=== PATIENT | male | born 1995 | race Two or more races ===

== ENCOUNTER 2020-02-03 00:52 | Emergency (ER) | payer SELFPAY ==
[~2020-02-03] VITALS: Ht 165.1 cm; Wt 63.5 kg
[2020-02-03] MEDS ORDERED: OLANZAPINE 10 MG VIAL IM ONE ×2 (01:00→01:03)
[2020-02-03] MEDS ORDERED: LORAZEPAM INJ 2 MG/ML VIAL IM ONE (01:00)
[2020-02-03] MEDS ORDERED: LORAZEPAM INJ 2 MG/ML VIAL ONE (01:04)
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
[2020-02-03 01:37] LABS: BASOPHILS # (AUTO) 0.1 /CMM (0.0-0.2); BASOPHILS % (AUTO) 0.7 % (0.0-2.0); EOSINOPHILS % (AUTO) 1.2 % (0.0-6.0); HEMATOCRIT 43 % (39-51); HEMOGLOBIN 14.3 g/dL (13.5-17.5); LYMPHOCYTES # (AUTO) 1.7 /CMM (0.8-4.8); MEAN CORPUSCULAR HGB CONC 33 g/dl (31.0-36.0); MEAN CORPUSCULAR VOLUME 88 fL (80-96); MONOCYTES % (AUTO) 9.4 % (2.0-12.0); NEUTROPHILS # (AUTO) 7.7 /CMM (1.8-8.9); NEUTROPHILS % (AUTO) 72.7 % (43.0-81.0); PLATELET COUNT (AUTO) 234 /CMM (150-450); RED BLOOD CELL COUNT(AUTO) 4.88 MIL/uL (4.5-6.0); WHITE BLOOD COUNT (AUTO) 10.7 K/uL (4.3-11.0)
[2020-02-03 01:48] LABS: ALANINE AMINOTRANSFERASE 21 U/L (12-78); ALBUMIN 4.2 g/dL (3.4-5.0); ALKALINE PHOSPHATASE 98 U/L (46-116); ASPARTATE AMINOTRANSFERASE 21 U/L (15-37); BILIRUBIN,DIRECT 0.2 mg/dL (0.0-0.2); CALCIUM, SERUM 8.6 mg/dL (8.5-10.1); CARBON DIOXIDE 28 mmol/L (21-32); CHLORIDE 104 mmol/L (98-107); CREATININE 1.2 mg/dL (0.6-1.3); GLUCOSE 72 mg/dL (74-106); POTASSIUM 3.1 mmol/L (3.5-5.1); SODIUM SERUM 142 mmol/L (136-145); TOTAL PROTEIN, SERUM 7.6 g/dL (6.4-8.2); UREA NITROGEN, BLOOD 16 mg/dL (7-18)
[2020-02-03 01:59] LABS: ACETAMINOPHEN 0 ug/ml (10-30); ALCOHOL, BLOOD < 3 mg/dL (0-0); SALICYLATE 0.4 mg/dL (2.8-20.0)
--- NOTE | 2020-02-03 02:21 | NUR ---
URINE COLLECTED AND SENT TO THE LAB.
[2020-02-03 03:16] LABS: APPEARANCE,URINE SL CLOUDY (CLEAR); BILIRUBIN,URINE NEGATIVE (NEGATIVE); BLOOD, URINE LARGE Ery/uL (NEGATIVE); COLOR,URINE YELLOW (YELLOW); KETONES,URINE TRACE (NEGATIVE); LEUKOCYTE ESTERASE ,URINE NEGATIVE (NEGATIVE); NITRITE, URINE NEGATIVE (NEGATIVE); PROTEIN,URINE TRACE mg/dl (NEGATIVE); UGLUCOSE NEGATIVE (NEGATIVE)
[2020-02-03 03:27] LABS: BACTERIA,URINE Few /HPF (None Seen); RBC,URINE 51-80 /HPF (0-2); SQUAMOUS EPITHELIAL CELL,UR Few /HPF (None Seen); URINE AMORPHOUS URATE Moderate /HPF (None Seen)
--- NOTE | 2020-02-03 07:25 | NUR ---
ENDORSEMENT RECEIVED FROM RORY VIDAL FOR YANI, PATIENT IN BED ASLEEP, AROUSABLE BY VOICE. HOOKED TO MONITOR, KEPT COMFORTABLE AND SAFE. SITTER AT BEDSIDE.
--- NOTE | 2020-02-03 09:02 | NUR ---
patient was asked if he wants breakfast, patient nods and goes back to sleep immediately.
--- NOTE | 2020-02-03 09:23 | NUR ---
patient in bed asleep, arousable by voice. hooked to monitor, VSS, will continue to monitor accordingly.
--- NOTE | 2020-02-03 11:13 | NUR ---
BETH CALLED FOR PSYCH EVAL. ETA 1 HOUR.
--- NOTE | 2020-02-03 12:20 | NUR ---
BETH VIDAL CRIS[employer] SPORTS COORDINATOR AT BEDSIDE.
--- NOTE | 2020-02-03 12:25 | NUR ---
BIOMETRICIAN BETH ROSENBERG AT BEDSIDE, PATIENT DENIES FEELING SUICIDAL AT THIS TIME.
--- NOTE | 2020-02-03 12:54 | NUR ---
Patient discharged to home in stable condition. Written and verbal after care instructions given. Patient verbalizes understanding of instruction. Patient discharged in proper clothing, name band removed. provided w sandwich and water.
[2020-02-03 12:56] VITALS: BP 127/79
== END 2020-02-03 12:57 | disposition home or self-care (01) ==
LOC: ER 00:52
DX: F15.121 Other stimulant abuse with intoxication delirium (principal)
CPT/HCPCS: 36415; 80048; 80076; 80305; 80307; 80329; 81001; 85025; 96372 ×2; 99285; G0480; J2060; J3490; 81000-TC